=== PATIENT | female | born 1995 | race African-American/Black ===

== ENCOUNTER → 2024-11-18 10:09 | Outpatient (CLI) | payer OTHER, SELFPAY ==
[2024-11-18 11:59] LABS: Influenza A - CEPHEID Flu A NEGATIVE (NEGATIVE); Influenza B - CEPHEID Flu B NEGATIVE (NEGATIVE); Respiratory Syncytial Virus Negative (Negative)
[2024-11-18 12:00] LABS: COVID-19 CEPHEID 4-PLEX PCR Negative (Negative)
== END ==
PROVIDERS: Visit Provider Physician Assistant
DX: J02.9 Acute pharyngitis, unspecified (principal)
CPT/HCPCS: 0241U

== ENCOUNTER 2024-11-18 10:23 | Emergency (ER) | payer OTHER, SELFPAY ==
[2024-11-18] VITALS (11 sets, daily range): BP systolic 111–133; BP diastolic 59–73; PULSE 69–84; RESP 15–25; TEMP 37.1; O2SAT 97–100; BMI 35.4
--- NOTE | 2024-11-18 10:33 | EKG_ITS ---
[address] [address] Test Date: 2024-11-18 Pat Name: Rabia Castro Department: Room: Gender: Female Cutter In: SOLE : 1995 Requested By: Order Number: [id number] Reading MD: Lloyd Ayala Measurements Intervals [place] Rate: 77 P: 7 IL: 130 QRS: 54 QRSD: 68 T: 28 QT: 368 QTc: 416 Interpretive Statements Normal sinus rhythm with sinus arrhythmia Electronically Signed On 11-18-2024 18:29:15 PST by Lloyd Ayala
--- NOTE | 2024-11-18 11:36 | DI.RAD.S_ITS ---
PROCEDURE: XR CHEST 2V INDICATIONS: chest pain TECHNIQUE: 2 views of the chest were acquired. COMPARISON: None. FINDINGS: Surgical changes and devices: None. Lungs and pleura: Lungs are clear. No pleural effusions or pneumothorax. Mediastinum: Mediastinal contours are normal. Heart size is normal. Bones and chest wall: No suspicious bony abnormalities. Soft tissues appear unremarkable. IMPRESSION: No acute cardiopulmonary abnormality is seen. Dictated by: Sherly Arora MD, PhD on 11/18/2024 at 11:58 Approved by: Sherly Arora MD, PhD on 11/18/2024 at 11:59
--- NOTE | 2024-11-18 11:40 | ED_ITS ---
HPI - Chest Pain General Chief Complaint: Chest Pain Stated Complaint: Chest pain sent from [facility] Time Seen by Provider: 11/18/24 11:15 Source: patient Mode of arrival: Ambulatory Limitations: no limitations History of Present Illness HPI narrative: this is a 29-year-old female with no active medical problems here with 2 days of left-sided chest tightness. It was not accompanied with fevers cough or wheezing she feels tired and it hurts to breathe. No leg swelling, nor hormonal contraception, patient states that she is not does not have sex with men. He is a nonsmoker, no leg swelling or recent immobilizations, no family history of coronary disease and no personal history of diabetes hypertension or hyperlipidemia. Related Data Home Medications Medication Instructions Recorded Confirmed No Known Home Medications 11/18/24 11/18/24 Allergies Allergy/AdvReac Type Severity Reaction Status Date / Time No Known Drug Allergies Allergy Unverified 11/18/24 10:06 Patient History Social History Smoking Status: Never smoker Smoking Status: Never smoker Exam Initial Vital Signs Initial Vital Signs: Vital Signs Pulse Rate 73 11/18/24 10:30 Blood Pressure 133/71 11/18/24 10:30 Pulse Oximetry 100 11/18/24 10:30 Const General: No acute distress HENMT Head: normocephalic and atraumatic Mouth: moist mucous membranes Eyes Pupils: PERRL EOM: EOM intact bilaterally Neck Neck: normal visual inspection and No JVD Chest Other: Tenderness to the left anterior chest wall that reproduces her chest pain without crepitance Resp Effort & Inspection: normal respiratory effort and able to speak in complete sentences Auscultation: clear to auscultation bilaterally Cardio Rate: regular rate Rhythm: regular rhythm Heart Sounds: no murmurs Back/Spine/Pelvis Back: normal to inspection Neuro General: patient alert, patient oriented x3 and moves all extremities Speech: speech normal Extrem General: full ROM Psych Appearance: grossly normal Course Orders Ordered: ED Orders 11/18/24 10:33 EKG-12 Lead Routine 11/18/24 11:36 XR chest 2V Stat 11/18/24 12:05 CBC Auto Diff [Complete Blood Count AUTO DIFF] Stat CMP [Comprehensive Metabolic Panel] Stat Troponin I Stat Discontinued Medications Ibuprofen (Ibuprofen 400 Mg Tablet) 800 mg PO NOW ONE Stop: 11/18/24 11:37 Last Admin: 11/18/24 11:46 Dose: 800 mg Documented By: ALEX Reevaluation(s) Reevaluation #1: patient was improved after ibuprofen. We will discharge to home Vital Signs Vital signs: Vital Signs - 8 hr 11/18/24 10:30 11/18/24 10:30 11/18/24 10:34 Temperature 98.7 F Pulse Rate 73 70 Respiratory Rate 18 Blood Pressure 133/71 133/71 Pulse Oximetry 100 100 Oxygen Delivery Method Room Air 11/18/24 11:00 11/18/24 11:01 11/18/24 11:01 Temperature Pulse Rate 82 84 Respiratory Rate 22 25 H Blood Pressure 117/71 Pulse Oximetry 97 97 Oxygen Delivery Method 11/18/24 11:30 11/18/24 11:31 11/18/24 11:31 Temperature Pulse Rate 69 75 Respiratory Rate 24 23 Blood Pressure 112/72 Pulse Oximetry 100 100 Oxygen Delivery Method 11/18/24 11:40 11/18/24 11:40 11/18/24 11:53 Temperature Pulse Rate 78 74 Respiratory Rate 15 19 Blood Pressure 111/73 Pulse Oximetry 100 100 Oxygen Delivery Method 11/18/24 11:53 11/18/24 12:00 11/18/24 12:00 Temperature Pulse Rate 75 Respiratory Rate 22 Blood Pressure 113/67 113/59 L Pulse Oximetry 100 Oxygen Delivery Method 11/18/24 12:30 11/18/24 12:30 11/18/24 13:00 Temperature Pulse Rate 69 Respiratory Rate 25 H Blood Pressure 114/61 113/67 Pulse Oximetry 100 Oxygen Delivery Method 11/18/24 13:00 Temperature Pulse Rate 78 Respiratory Rate 25 H Blood Pressure Pulse Oximetry 100 Oxygen Delivery Method MDM - Chest Pain Lab Data Lab results narrative: normal troponin, after 2 days of chest pain I do not think it needs to be repeated. CBC with diff is unremarkable I note on CMP that she has mild elevations in AST and ALT which had you not think her clinically significant 11/18/24 12:05 11/18/24 12:05 Labs: Lab Results 11/18/24 Range/Units 12:05 WBC 7.3 (4.5-11.0) X10^3/uL RBC 4.37 (4.0-5.2) X10^6/uL Hgb 10.1 L (12.0-16.0) g/dL Hct 31.8 L (36-46) % MCV 72.8 L (80-100) fL MCH 23.2 L (26-34) PG MCHC 31.9 (30-36) % RDW 17.2 H (11.6-14.8) % Plt Count 300 (150-400) X10^3/uL Neut % (Auto) 59.1 (50-75) % Lymph % (Auto) 29.7 (25-40) % [place] % (Auto) 7.1 (3-14) % Eos % (Auto) 3.4 (2-4) % Baso % (Auto) 0.7 (0-2) % Neut # (Auto) 4300 (6493-1602) /uL Lymph # (Auto) 2200 (8983-8164) /uL [place] # (Auto) 500 (0-900) /uL Eos # (Auto) 200 (0-450) /uL Baso # (Auto) 100 (0-100) /uL Sodium 139 (137-145) mmol/L Potassium 3.8 (3.4-5.1) mmol/L Chloride 107 (98-107) mmol/L Carbon Dioxide 24 (22-32) mmol/L BUN 15 (7-17) mg/dL Creatinine 0.71 (0.52-1.04) mg/dL Estimated GFR > 60 (>60) mL/min BUN/Creatinine Ratio 21.1 (6-22) Glucose 91 (70-100) mg/dL Calcium 8.8 (8.4-10.2) mg/dL Total Bilirubin 0.3 (0.2-1.3) mg/dL AST 61 H (14-36) IU/L ALT 40 H (<35) IU/L Alkaline Phosphatase 64 (38-126) U/L Troponin I < 0.012 (0.01-0.034) ng/mL Total Protein 7.3 (6.3-8.2) g/dL Albumin 4.2 (3.5-5.0) g/dL Globulin 3.1 (1.7-4.1) g/dL Albumin/Globulin Ratio 1.4 (1.0-2.8) Imaging Data Chest x-ray: My Impression: independently reviewed chest x-ray, no acute findings Radiologist's Impression: radiology report was reviewed, no acute disease ECG Data Interpretation: ECG shows normal sinus rhythm at 77 sinus arrhythmias present this is a normal EKG MDM Narrative Medical decision making narrative: 29-year-old female with no cardiac risk factors and chest pain that is reproducible with pressure on the chest wall. Does not have risk factors for pulmonary embolism does not have tachypnea tachycardia or hypoxia I do not think this is pulmonary embolism. No infiltrate seen on chest x-ray and normal troponin and no ischemic EKG changes. She improved with ibuprofen. Presentation does not suggest pericarditis. I think it is safe for her to go home patient was discharged to home on symptomatic care Discharge Plan Departure Patient Disposition: Home Clinical Impression: Acute chest wall pain Activity Restrictions/Additional Instructions: emergency department evaluation today is reassuring. I do not think that there is any serious cause for chest pain requiring further workup or treatment. Examination suggest that this is from your chest wall. I recommended use ibuprofen 600 mg 3 times a day until your symptoms are improving. After that you can use 600 mg every 6-8 hours as needed for pain. It is best to take ibuprofen with food. You can also use acetaminophen ( Tylenol) that usual [id number] doses. Follow up soon with your normal primary care provider. If you are having increasing chest pain shortness of breath fevers or other acute symptoms recheck in the emergency department Prescriptions: No Action No Known Home Medications Referrals: ProviderJoselyn [Primary Care Provider] - Stand Alone Forms: Patient Portal/API/Survey
[2024-11-18] MEDS: IBUPROFEN 400 MG TABLET 800 MG PO (11:46)
[2024-11-18 12:15] LABS: Add Manual Diff / Slide Review NO; Basophils Absolute Auto 100 /uL (0-100); Basophils Percent Auto 0.7 % (0-2); Eosinophils Absolute Auto 200 /uL (0-450); Eosinophils Percent Auto 3.4 % (2-4); Hematocrit 31.8 % (36-46); Hemoglobin 10.1 g/dL (12.0-16.0); Lymphocytes Absolute Auto 2200 /uL (1100-4500); Lymphocytes Percent Auto 29.7 % (25-40); Mean Corpuscular HGB Conc 31.9 % (30-36); Mean Corpuscular Hemoglobin 23.2 PG (26-34); Mean Corpuscular Volume 72.8 fL (80-100); Monocytes Absolute Auto 500 /uL (0-900); Monocytes Percent Auto 7.1 % (3-14); Neutrophils Absolute Auto 4300 /uL (1500-7000); Neutrophils Percent Auto 59.1 % (50-75); Platelet Count 300 X10^3/uL (150-400); Red Blood Cell Count 4.37 X10^6/uL (4.0-5.2); Red Cell Distribution Width 17.2 % (11.6-14.8); White Blood Cell Count 7.3 X10^3/uL (4.5-11.0)
[2024-11-18 12:29] LABS: Alanine Aminotransferase 40 IU/L (<35); Albumin 4.2 g/dL (3.5-5.0); Albumin Globulin Ratio 1.4 (1.0-2.8); Alkaline Phosphatase 64 U/L (38-126); Aspartate Aminotransferase 61 IU/L (14-36); BUN Creatinine Ratio 21.1 (6-22); Bilirubin Total 0.3 mg/dL (0.2-1.3); Blood Urea Nitrogen 15 mg/dL (7-17); Calcium 8.8 mg/dL (8.4-10.2); Carbon Dioxide 24 mmol/L (22-32); Chloride 107 mmol/L (98-107); Estimated Glomerular Filt Rate > 60 mL/min (>60); Globulin 3.1 g/dL (1.7-4.1); Glucose 91 mg/dL (70-100); HEMOLYSIS < 15 (0-50); Potassium 3.8 mmol/L (3.4-5.1); Sodium 139 mmol/L (137-145); Total Protein 7.3 g/dL (6.3-8.2)
[2024-11-18 12:41] LABS: Troponin I < 0.012 ng/mL (0.01-0.034)
== END 2024-11-18 13:11 | disposition home or self-care (01) ==
PROVIDERS: Emergency Provider Emergency Medicine
DX: R07.89 Other chest pain (principal)
CPT/HCPCS: 0241U; 36415; 71046; 80053; 84484; 85025; 93005; 99283; 99284